=== PATIENT | female | born 1960 | race Caucasian/White ===

== ENCOUNTER 2016-11-12 16:13 | Emergency (ER) | payer MEDICARE, OTHER ==
[2016-11-12 17:24] LABS: HEMOGLOBIN 13.3 gm/dl (12.3-15.3); RED BLOOD COUNT 4.36 M/UL (4.00-5.10); WHITE BLOOD COUNT 5.6 K/UL (4.5-11.0)
[2016-11-12 17:43] LABS: BUN/CREATININE RATIO 15 (0-10)
[2017-03-01] MEDS ORDERED: ESTRACE2 MG PO (16:47)
[2017-03-01] MEDS ORDERED: PROZAC40 MG PO (16:48)
[2017-03-01] MEDS ORDERED: NEURONTIN 400400 MG PO (16:49)
[2017-03-01] MEDS ORDERED: SINGULAIR10 MG PO (16:49)
[2017-03-01] MEDS ORDERED: ZANAFLEX4 M1 PO (16:50)
[2017-03-01] MEDS ORDERED: COREG 3.125M3.125 MG PO (16:51)
[2017-03-01] MEDS ORDERED: LORTAB 7.5-3251 EACH PO (16:51)
[2017-03-01] MEDS ORDERED: ZANTAC 150 MG150 MG PO (16:52)
[2017-03-01] MEDS ORDERED: LISINOPRIL-HCT1 EAC1 PO (16:52)
[2017-03-01] MEDS ORDERED: KLONOPIN TAB 00.5 MG PO (16:53)
[2017-03-01] MEDS ORDERED: GLUCOPHAGE500 MG PO (16:55)
== END 2016-11-12 21:12 | disposition home or self-care (01) ==
LOC: ER1 16:13
PROVIDERS: Emergency Medicine
DX: L03.116 Cellulitis of left lower limb (principal); L03.115 Cellulitis of right lower limb; E11.628 Type 2 diabetes mellitus with other skin complications; G89.29 Other chronic pain; I10 Essential (primary) hypertension; J45.909 Unspecified asthma, uncomplicated; Z88.0 Allergy status to penicillin; Z88.2 Allergy status to sulfonamides; Z88.5 Allergy status to narcotic agent
CPT/HCPCS: 36415; 80048; 83880; 84484; 85025; 85379; 87040; 96374; 99283; J2405; J7040

== ENCOUNTER 2021-04-27 05:51 | Emergency (ER) | payer OTHER ==
[~2021-04-27 05:51] MED LIST: AMOXICILLIN500 MG PO; AMOXICILLIN875 MG PO; ASPIRIN EC81 MG PO; CELEBREX100 MG PO; CLEOCIN HCL300 MG PO; COREG 3.125M3.125 MG PO; COREG6.25 MG PO; ECOTRIN81 MG PO; ESTRACE2 MG PO; GABAPENTIN800 MG PO; GLUCOPHAGE500 MG PO; K-DUR TAB 20 M20 MEQ PO; KLONOPIN TAB 00.5 MG PO; LEVAQUIN500 MG PO; LISINOPRIL-HCT1 EAC1 PO; LISINOPRIL10 MG PO; LOPRESSOR 50 MG50 MG PO; LORTAB 7.5-3251 EACH PO; MACROBID 100 M100 MG PO; MUCINEX600 MG PO; NEURONTIN 400400 MG PO; NORCO 10-325 T1 EACH PO; NORVASC 5 MG TAB5 MG PO; PERCOCET 10-321 EACH PO; PHENERGAN 12.12.5 M1 PO; PREDNISONE20 MG PO; PRINIVIL20 MG PO; PROZAC 20 MG CA20 MG PO; PROZAC40 MG PO; SINGULAIR10 MG PO; THERAGRAN M TAB1 EA PO; ZANAFLEX4 M1 PO; ZANAFLEX4 MG PO; ZANTAC 150 MG150 MG PO; ZOFRAN4 MG PO
[2021-04-27 07:22] LABS: HEMOGLOBIN 13.9 gm/dl (12.3-15.3); RED BLOOD COUNT 4.44 M/UL (4.00-5.10); WHITE BLOOD COUNT 6.8 K/UL (4.5-11.0)
[2021-04-27 07:51] LABS: BUN/CREATININE RATIO 16 (0-10)
[2021-04-27] MEDS ORDERED: FLOMAX0.4 MG PO (10:06)
[2021-04-27] MEDS ORDERED: HYDROCODON-ACE1 EAC4 PO (10:09)
== END 2021-04-27 10:34 | disposition home or self-care (01) ==
LOC: ER1 05:51
PROVIDERS: Physician Assistant
DX: N20.1 Calculus of ureter (principal); I48.91 Unspecified atrial fibrillation; I10 Essential (primary) hypertension; R31.9 Hematuria, unspecified; E87.6 Hypokalemia; E11.65 Type 2 diabetes mellitus with hyperglycemia; Z90.710 Acquired absence of both cervix and uterus; Z90.49 Acquired absence of other specified parts of digestive tract; Z88.0 Allergy status to penicillin; Z87.442 Personal history of urinary calculi; Z88.2 Allergy status to sulfonamides
CPT/HCPCS: 80053; 81001; 82962; 85025; 96374; 96375; 99284; J1885; J2270; J7030